=== PATIENT | female | born 1990 | race Caucasian/White ===

== ENCOUNTER 2016-11-02 20:21 | Emergency (ER) | payer OTHER ==
--- NOTE | 2016-11-02 20:47 | ED NURSING NOTES ---
Clinical Report - Nurses [facility] [address] [place] [address] 11/02/2016 20:21 Patient: BENTON COLON TRIAGE Triage time 20:32 Nov 02 2016. Acuity: LEVEL 5. Chief Complaint: JAW PAIN. 20:37 11/02/16. SEPSIS SCREEN: Sepsis Screen. Negative (no infection suspected/documented). --20:37 Monica Smith R.N. 20:37 11/02/16. BP: 124/82. HR: 78. RR: 18. O2 saturation: 100%. Temp: 98.6 F. Pain level now 05/12. --20:37 Monica Smith R.N. Weight: 52.1 kg stated. Height/Length: 63 inches Per Patient. BMI: 20.4. --20:32 Monica Smith R.N. Medications None. --20:37 Monica Smith R.N. Allergies Sulfa Antibiotics. --20:37 Monica Smith R.N. Medication/allergy information source: the patient. --20:37 Monica Smith R.N. History Arrived by private vehicle. Historian: patient. Onset. (had wisdom teeth extracted on thursday, states pain is worse now on bottom left. feels like there is lymph node swelling per patient). No fever, hoarseness or mouth sores. PAST MEDICAL HX: Last normal menstrual period now. SOCIAL HX: Light tobacco smoker (cigarette)- less than 1/2 a pack per day. No alcohol use or drug use. No infectious disease exposure. ABUSE ASSESSMENT: No report of abuse. SELF HARM ASSESSMENT: A self harm assessment was performed. The patient answered "no" to the question "Have you recently felt down, depressed, or hopeless?", "Have you noticed less interest or pleasure in doing things?", "Do you have thoughts of harming or killing yourself?", "Are you here because you tried to hurt yourself?", "Have you ever tried to hurt yourself before today?", "Have you recently had thoughts about harming or killing others?" and "Do you have any dangerous items in your possession?". FALL RISK ASSESSMENT: Fall risk assessment completed. No fall risk identified. NUTRITIONAL RISK ASSESSMENT: The nutritional risk assessment revealed no deficiencies. FUNCTIONAL ASSESSMENT: Functional assessment: no impairments noted. LEARNING NEEDS ASSESSMENT: The learning needs assessment revealed no barriers. SKIN INTEGRITY ASSESSMENT: Skin integrity risk assessment completed. No skin integrity risk identified. --20:37 Monica Smith R.N. PROBLEMS: Dental Abscess. Dental Caries. Dental Pain. --20:37 Monica Smith R.N. ADDITIONAL SURGERIES: [place] teeth extraction. --20:37 Monica Smith R.N. Interventions ID band on patient. --20:37 Monica Smith R.N. PHYSICAL ASSESSMENT 20:40 11/02/16. Ambulatory to room. GENERAL / NEURO / PSYCH: Alert. Oriented X 4. Appears in no acute distress. HEENT: Pupils equal, round and reactive to light. Pharynx within normal limits. Voice within normal limits. ( no swelling or redness noted in gums). Mucous membranes are pink. CVS: Capillary refill less than 2 seconds. SKIN: Skin is warm and dry. Normal skin turgor. --20:40 Monica Smith R.N. NURSING PROGRESS NOTES 20:37 11/02/16. The initial plan of care for this patient includes an assessment with efforts to address the presence of pain. This plan of care was discussed with the patient. Two patient identifiers checked. Call light placed in reach. Side rails up x 1. Bed placed in lowest position. Brakes of bed on. Patient ready for evaluation. --20:39 Monica Smith R.N. 20:47 11/02/2016 Percocet (Oxycodone-Acetaminophen) PO 5/325 mg Tablets 1 tab given. Allergies verified, confirmed 5 rights and sedative warning given to the patient. --20:47 Moncia Smith R.N. 20:47 11/02/2016 Clindamycin PO Capsules 300 mg given. Allergies verified and confirmed 5 rights. --20:47 Monica Smith R.N. DISPOSITION / DISCHARGE 20:49 11/02/16. Condition at departure: improved and stable. The goals identified in the patient's plan of care were met. No learning barriers present. Discharge instructions provided and reviewed with the patient. Reviewed medication(s) side effects, precautions, dosing and course information. Prescription(s) given to the patient. Reviewed referral to an oral surgeon for followup. Summary of care provided to patient via paper. Reviewed need to stop smoking. Patient verbalized understanding. Written instructions provided in [place]. The patient was discharged home and accompanied by glass technician. She left the Emergency Department ambulatory and via private vehicle. Snack Foods Mixer Operator driving. FALL RISK ASSESSMENT: Fall risk assessment completed. No fall risk identified. --20:49 Monica Smith R.N. 20:34 11/02/16. BP: 124/82. HR: 78. RR: 18. O2 saturation: 100%. Temp: 98.6 F. Pain level now 1010. --20:49 Monica Smith R.N. <<STRICKEN ENTRY-- Departure time: 20:49 Nov 02 2016. --20:49 Monica Smith R.N. --END STRIKE>> Correction --20:53 Monica Smith R.N. Departure time: 20:53 Nov 02 2016. --20:53 Monica Smith R.N. Locked/Released at 11/02/2016 20:53 by Monica Smith R.N.
--- NOTE | 2016-11-02 20:47 | ED CLINICAL REPORT ---
Clinical Report - Physicians/Mid Levels [facility] [address] [place] [address] 11/02/2016 20:21 Patient: BENTON COLON Time Seen: 20:35 Nov 02 2016. Arrived- By private vehicle. Historian- patient. HISTORY OF PRESENT ILLNESS Chief Complaint: DENTAL PAIN. This started 3 days and is still present. Pain described as mild. (4 days post quad wisdom tooth extraction now with facial pain/ swelling on left side, reports was taking vicodin previously and now worse, out of meds. No abx. Reports new facial swelling. Reports unable to chew on left isde). REVIEW OF SYSTEMS No fever, cough, diarrhea, abdominal pain or joint pain. All systems otherwise negative, except as recorded above. ADDITIONAL NOTES The nursing notes have been reviewed. PHYSICAL EXAM Vital Signs: 11/02/2016 20:37 BP: 124/82. HR: 78. RR: 18. O2 saturation: 100%. Temp: 98.6 F. Appearance: Alert. Patient in mild distress. Head: Normal external inspection. ENT: Dental tenderness (at gumline erythema of left molar, no palpable mass/ abscess). Nose normal. Pharynx normal. Lips normal. Uvula midline. No mouth ulcerations, tonsillar exudate, dental decay or trismus. Neck: Lymphadenopathy present (left anterior). CVS: Normal heart rate and rhythm. Heart sounds normal. Respiratory: No respiratory distress. Breath sounds normal. PROGRESS AND PROCEDURES Course of Care: no trismus, no palpable abscess/mass. Uvula midline. Tolerating own secretions well. No distress. No cough. Stable To f/u outpatient. 11/02/2016 20:37 BP: 124/82. HR: 78. RR: 18. O2 saturation: 100%. Temp: 98.6 F. Patient is stable. Patient/family counseled. Disposition: Discharged. CLINICAL IMPRESSION Moderate dental pain. INSTRUCTIONS Drink plenty of fluids. (external ice). Warnings: Further evaluation is necessary (in 2-3 days to ensure improvement). It is very important to follow up with a physician. SEDATIVE MEDICATION: You were given sedative medication during your visit. Do not drive or operate dangerous machinery. Prescription Medications: Cleocin 300 mg: take 1 capsule orally every 6 hours for 10 days. No refill. Substitution is permissible. Percocet 5 mg/325 mg: take 1 tablet orally every 6 hours as needed for pain. Dispense ten (10). No refill. Substitution is permissible. OTC Medications: Motrin IB 200 mg (available over the counter): take 4 orally every 8 hours for 5 days, as needed for pain or swelling. (with food) (Electronically signed by Isabel Barry P.A.-C 11/02/2016 21:01)
--- NOTE | 2016-11-02 20:47 | ED CLINICAL REPORT ---
Clinical Report - Physicians/Mid Levels [facility] [address] [place] [address] 11/02/2016 20:21 Patient: BENTON COLON Time Seen: 20:35 Nov 02 2016. Arrived- By private vehicle. Historian- patient. HISTORY OF PRESENT ILLNESS Chief Complaint: DENTAL PAIN. This started 3 days and is still present. Pain described as mild. (4 days post quad wisdom tooth extraction now with facial pain/ swelling on left side, reports was taking vicodin previously and now worse, out of meds. No abx. Reports new facial swelling. Reports unable to chew on left isde). REVIEW OF SYSTEMS No fever, cough, diarrhea, abdominal pain or joint pain. All systems otherwise negative, except as recorded above. ADDITIONAL NOTES The nursing notes have been reviewed. PHYSICAL EXAM Vital Signs: 11/02/2016 20:37 BP: 124/82. HR: 78. RR: 18. O2 saturation: 100%. Temp: 98.6 F. Appearance: Alert. Patient in mild distress. Head: Normal external inspection. ENT: Dental tenderness (at gumline erythema of left molar, no palpable mass/ abscess). Nose normal. Pharynx normal. Lips normal. Uvula midline. No mouth ulcerations, tonsillar exudate, dental decay or trismus. Neck: Lymphadenopathy present (left anterior). CVS: Normal heart rate and rhythm. Heart sounds normal. Respiratory: No respiratory distress. Breath sounds normal. PROGRESS AND PROCEDURES Course of Care: no trismus, no palpable abscess/mass. Uvula midline. Tolerating own secretions well. No distress. No cough. Stable To f/u outpatient. 11/02/2016 20:37 BP: 124/82. HR: 78. RR: 18. O2 saturation: 100%. Temp: 98.6 F. Patient is stable. Patient/family counseled. Disposition: Discharged. CLINICAL IMPRESSION Moderate dental pain. INSTRUCTIONS Drink plenty of fluids. (external ice). Warnings: Further evaluation is necessary (in 2-3 days to ensure improvement). It is very important to follow up with a physician. SEDATIVE MEDICATION: You were given sedative medication during your visit. Do not drive or operate dangerous machinery. Prescription Medications: Cleocin 300 mg: take 1 capsule orally every 6 hours for 10 days. No refill. Substitution is permissible. Percocet 5 mg/325 mg: take 1 tablet orally every 6 hours as needed for pain. Dispense ten (10). No refill. Substitution is permissible. OTC Medications: Motrin IB 200 mg (available over the counter): take 4 orally every 8 hours for 5 days, as needed for pain or swelling. (with food) (Electronically signed by Isabel Barry P.A.-C 11/02/2016 21:01)
--- NOTE | 2016-11-02 20:47 | ED ORDER SUMMARY ---
..... Patient: BENTON COLON OrderSheet [facility] VisitID: [id number] [address] [place] [address] 26y, F Registration Date/Time: 11/02/2016 ORDER SHEET Weight: 52.1 kg (stated) Allergies: Sulfa Antibiotics GENERAL ORDERS: MEDICATION ORDERS: Percocet PO 5/325 mg (HIGH ALERT MEDICATION, NOW) (20:43 11/02/2016 Belinda P.A.-C) (Ack 20:44 EInderbitzen R.N.) (20:47 EInderbitzen R.N.) Clindamycin PO 300 mg (NOW) (20:43 11/02/2016 Belinda Mckeon.A.-C) (Ack 20:44 EInderbitzen R.N.) (20:47 EInderbitzen R.N.) IV FLUIDS: ORDER SHEET NOTES: [Electronically signed by Monica Smith R.N. (20:53 11/02/2016)] [Electronically signed by Isabel Barry P.A.-C (21:01 11/02/2016)] [Electronically locked/signed by Monica Smith R.N. (20:53 11/02/2016)]
--- NOTE | 2016-11-02 20:47 | ED ORDER SUMMARY ---
..... Patient: BENTON COLON OrderSheet [facility] VisitID: [id number] [address] [place] [address] 26y, F Registration Date/Time: 11/02/2016 ORDER SHEET Weight: 52.1 kg (stated) Allergies: Sulfa Antibiotics GENERAL ORDERS: MEDICATION ORDERS: Percocet PO 5/325 mg (HIGH ALERT MEDICATION, NOW) (20:43 11/02/2016 Belinda P.A.-C) (Ack 20:44 EInderbitzen R.N.) (20:47 EInderbitzen R.N.) Clindamycin PO 300 mg (NOW) (20:43 11/02/2016 Belinda Mckeon.A.-C) (Ack 20:44 EInderbitzen R.N.) (20:47 EInderbitzen R.N.) IV FLUIDS: ORDER SHEET NOTES: [Electronically signed by Monica Smith R.N. (20:53 11/02/2016)] [Electronically signed by Isabel Barry P.A.-C (21:01 11/02/2016)] [Electronically locked/signed by Monica Smith R.N. (20:53 11/02/2016)]
--- NOTE | 2016-11-02 20:47 | ED NURSING NOTES ---
Clinical Report - Nurses [facility] [address] [place] [address] 11/02/2016 20:21 Patient: BENTON COLON TRIAGE Triage time 20:32 Nov 02 2016. Acuity: LEVEL 5. Chief Complaint: JAW PAIN. 20:37 11/02/16. SEPSIS SCREEN: Sepsis Screen. Negative (no infection suspected/documented). --20:37 Monica Smith R.N. 20:37 11/02/16. BP: 124/82. HR: 78. RR: 18. O2 saturation: 100%. Temp: 98.6 F. Pain level now 05/12. --20:37 Monica Smith R.N. Weight: 52.1 kg stated. Height/Length: 63 inches Per Patient. BMI: 20.4. --20:32 Monica Smith R.N. Medications None. --20:37 Monica Smith R.N. Allergies Sulfa Antibiotics. --20:37 Monica Smith R.N. Medication/allergy information source: the patient. --20:37 Monica Smith R.N. History Arrived by private vehicle. Historian: patient. Onset. (had wisdom teeth extracted on thursday, states pain is worse now on bottom left. feels like there is lymph node swelling per patient). No fever, hoarseness or mouth sores. PAST MEDICAL HX: Last normal menstrual period now. SOCIAL HX: Light tobacco smoker (cigarette)- less than 1/2 a pack per day. No alcohol use or drug use. No infectious disease exposure. ABUSE ASSESSMENT: No report of abuse. SELF HARM ASSESSMENT: A self harm assessment was performed. The patient answered "no" to the question "Have you recently felt down, depressed, or hopeless?", "Have you noticed less interest or pleasure in doing things?", "Do you have thoughts of harming or killing yourself?", "Are you here because you tried to hurt yourself?", "Have you ever tried to hurt yourself before today?", "Have you recently had thoughts about harming or killing others?" and "Do you have any dangerous items in your possession?". FALL RISK ASSESSMENT: Fall risk assessment completed. No fall risk identified. NUTRITIONAL RISK ASSESSMENT: The nutritional risk assessment revealed no deficiencies. FUNCTIONAL ASSESSMENT: Functional assessment: no impairments noted. LEARNING NEEDS ASSESSMENT: The learning needs assessment revealed no barriers. SKIN INTEGRITY ASSESSMENT: Skin integrity risk assessment completed. No skin integrity risk identified. --20:37 Monica Smith R.N. PROBLEMS: Dental Abscess. Dental Caries. Dental Pain. --20:37 Monica Smith R.N. ADDITIONAL SURGERIES: [place] teeth extraction. --20:37 Monica Smith R.N. Interventions ID band on patient. --20:37 Monica Smith R.N. PHYSICAL ASSESSMENT 20:40 11/02/16. Ambulatory to room. GENERAL / NEURO / PSYCH: Alert. Oriented X 4. Appears in no acute distress. HEENT: Pupils equal, round and reactive to light. Pharynx within normal limits. Voice within normal limits. ( no swelling or redness noted in gums). Mucous membranes are pink. CVS: Capillary refill less than 2 seconds. SKIN: Skin is warm and dry. Normal skin turgor. --20:40 Monica Smith R.N. NURSING PROGRESS NOTES 20:37 11/02/16. The initial plan of care for this patient includes an assessment with efforts to address the presence of pain. This plan of care was discussed with the patient. Two patient identifiers checked. Call light placed in reach. Side rails up x 1. Bed placed in lowest position. Brakes of bed on. Patient ready for evaluation. --20:39 Monica Smith R.N. 20:47 11/02/2016 Percocet (Oxycodone-Acetaminophen) PO 5/325 mg Tablets 1 tab given. Allergies verified, confirmed 5 rights and sedative warning given to the patient. --20:47 Monica Smith R.N. 20:47 11/02/2016 Clindamycin PO Capsules 300 mg given. Allergies verified and confirmed 5 rights. --20:47 Monica Smith R.N. DISPOSITION / DISCHARGE 20:49 11/02/16. Condition at departure: improved and stable. The goals identified in the patient's plan of care were met. No learning barriers present. Discharge instructions provided and reviewed with the patient. Reviewed medication(s) side effects, precautions, dosing and course information. Prescription(s) given to the patient. Reviewed referral to an oral surgeon for followup. Summary of care provided to patient via paper. Reviewed need to stop smoking. Patient verbalized understanding. Written instructions provided in [place]. The patient was discharged home and accompanied by commercial lines underwriter. She left the Emergency Department ambulatory and via private vehicle. Lock Tender Chief Operator driving. FALL RISK ASSESSMENT: Fall risk assessment completed. No fall risk identified. --20:49 Monica Smith R.N. 20:34 11/02/16. BP: 124/82. HR: 78. RR: 18. O2 saturation: 100%. Temp: 98.6 F. Pain level now 1010. --20:49 Monica Smith R.N. <<STRICKEN ENTRY-- Departure time: 20:49 Nov 02 2016. --20:49 Monica Smith R.N. --END STRIKE>> Correction --20:53 Monica Smith R.N. Departure time: 20:53 Nov 02 2016. --20:53 Monica Smith R.N. Locked/Released at 11/02/2016 20:53 by Monica Smith R.N.
--- NOTE | 2016-11-02 21:02 | ED MAR SUMMARY ---
..... Medication Administration Record [facility] [address] [place] [address] Patient: BENTON COLON Visit ID: [id number] 26y, F Weight: 52.1 kg Height/Length: 63 in BMI: 20.4 ALLERGIES: Sulfa Antibiotics Given 20:47 11/02/2016 Monica Smith R.N. Medication Administered: PERCOCET [PO] (OXYCODONE-ACETAMINOPHEN), Dose: 1 tab 5/325 mg Tablets PO. Medication Ordered: Percocet PO 5/325 mg (HIGH ALERT MEDICATION, NOW). Given 20:47 11/02/2016 Monica Smith R.N. Medication Administered: CLINDAMYCIN [PO], Dose: 300 mg Capsules PO. Medication Ordered: Clindamycin PO 300 mg (NOW).
--- NOTE | 2016-11-02 21:02 | ED MED RECONCILIATION SUMMARY ---
Patient: BENTON COLON Medication Reconciliation Report [facility] VisitID: [id number] [address] [place] [address] 26y, F Registration Date/Time: 11/02/2016 Weight: 52.1 kg Height/Length: 63 in. BMI: 20.4 ALLERGIES: Sulfa Antibiotics The patient's Home Medications are listed below: NONE. The source(s) of the original Home Medication information: patient The following Medications were given to the patient in the Emergency Department: Percocet [PO] PO 1 tab, administered: 11/02/2016 8:47:00 PM Clindamycin [PO] PO 300 mg, administered: 11/02/2016 8:47:00 PM The following Medications were prescribed to the patient: Motrin IB 200 mg (available over the counter): take 4 orally every 8 hours for 5 days, as needed for pain or swelling.(with food) -- Isabel Barry, P.A.-C Cleocin 300 mg: take 1 capsule orally every 6 hours for 10 days. No refill. Substitution is permissible. -- Isabel Barry, P.A.-C Percocet 5 mg/325 mg: take 1 tablet orally every 6 hours as needed for pain. Dispense ten (10). No refill. Substitution is permissible. -- Isabel Barry, P.A.-C
--- NOTE | 2016-11-02 21:02 | ED MED RECONCILIATION SUMMARY ---
Patient: BENTON COLON Medication Reconciliation Report [facility] VisitID: [id number] [address] [place] [address] 26y, F Registration Date/Time: 11/02/2016 Weight: 52.1 kg Height/Length: 63 in. BMI: 20.4 ALLERGIES: Sulfa Antibiotics The patient's Home Medications are listed below: NONE. The source(s) of the original Home Medication information: patient The following Medications were given to the patient in the Emergency Department: Percocet [PO] PO 1 tab, administered: 11/02/2016 8:47:00 PM Clindamycin [PO] PO 300 mg, administered: 11/02/2016 8:47:00 PM The following Medications were prescribed to the patient: Motrin IB 200 mg (available over the counter): take 4 orally every 8 hours for 5 days, as needed for pain or swelling.(with food) -- Isabel Barry, P.A.-C Cleocin 300 mg: take 1 capsule orally every 6 hours for 10 days. No refill. Substitution is permissible. -- Isabel Barry, P.A.-C Percocet 5 mg/325 mg: take 1 tablet orally every 6 hours as needed for pain. Dispense ten (10). No refill. Substitution is permissible. -- Isabel Barry, P.A.-C
--- NOTE | 2016-11-02 21:02 | ED MAR SUMMARY ---
..... Medication Administration Record [facility] [address] [place] [address] Patient: BENTON COLON Visit ID: [id number] 26y, F Weight: 52.1 kg Height/Length: 63 in BMI: 20.4 ALLERGIES: Sulfa Antibiotics Given 20:47 11/02/2016 Monica Smith R.N. Medication Administered: PERCOCET [PO] (OXYCODONE-ACETAMINOPHEN), Dose: 1 tab 5/325 mg Tablets PO. Medication Ordered: Percocet PO 5/325 mg (HIGH ALERT MEDICATION, NOW). Given 20:47 11/02/2016 Monica Smith R.N. Medication Administered: CLINDAMYCIN [PO], Dose: 300 mg Capsules PO. Medication Ordered: Clindamycin PO 300 mg (NOW).
--- NOTE | 2016-11-02 21:02 | ED DISCHARGE INSTRUCTIONS ---
Patient: BENTON COLON General Instructions [facility] VisitID: [id number] [place] [address] 26y, F Registration Date/Time: 11/02/2016 Moderate dental pain. INSTRUCTIONS Drink plenty of fluids. (external ice). Warnings: Further evaluation is necessary (in 2-3 days to ensure improvement). It is very important to follow up with a physician. SEDATIVE MEDICATION: You were given sedative medication during your visit. Do not drive or operate dangerous machinery. Prescription Medications: Cleocin 300 mg: take 1 capsule orally every 6 hours for 10 days. No refill. Substitution is permissible. Percocet 5 mg/325 mg: take 1 tablet orally every 6 hours as needed for pain. Dispense ten (10). No refill. Substitution is permissible. OTC Medications: Motrin IB 200 mg (available over the counter): take 4 orally every 8 hours for 5 days, as needed for pain or swelling. (with food) ADDITIONAL INFORMATION Dental Pain A crack or cavity in the tooth, which exposes the sensitive inner area of the tooth can cause tooth pain. An infection in the gum or the root of the tooth can cause pain and swelling. The pain is often made worse by drinking hot or cold fluids, or biting on hard foods. Pain may spread from the tooth to the ear or jaw on the same side. Home Care: Avoid hot and cold foods and liquids since your tooth may be sensitive to temperature changes. If your tooth is chipped or cracked, or if there is a large open cavity, apply OIL OF CLOVES (available pwet-jai-twnably in drug stores) directly to the tooth to reduce pain. Some pharmacies carry an [id number]-[id number] "toothache kit." This contains a paste, which can be applied over the exposed tooth to decrease sensitivity. A cold pack on your jaw over the sore area may help reduce pain. You may use acetaminophen (Tylenol) or ibuprofen (Motrin, Advil) to control pain, unless another medicine was prescribed. [ NOTE: If you have chronic liver or kidney disease or ever had a stomach ulcer or GI bleeding, talk with your doctor before using these medicines.] If you have signs of an infection, an antibiotic will be given. Take it as directed. Follow-Up as directed with a dentist. Your pain may go away with the treatment given. However, only a dentist can fully evaluate and treat the cause and prevent the pain from coming back again. TOOTHACHE IS A SIGN OF DISEASE IN YOUR TOOTH AND SHOULD BE EXAMINED AND TREATED BY A DENTIST. Get Prompt Medical Attention if any of the following occur: Your face becomes swollen or red Pain worsens or spreads to the neck Fever over 100.4 F (38.0 C) Unusual drowsiness; headache or stiff neck; weakness or fainting Pus drains from the tooth Difficulty swallowing or breathing Clindamycin Hydrochloride Oral capsule What is this medicine? CLINDAMYCIN (KLIN da SHELBY sin) is a lincosamide antibiotic. It is used to treat certain kinds of bacterial infections. It will not work for colds, flu, or other viral infections. How should I use this medicine? Take this medicine by mouth with a full glass of water. Follow the directions on the prescription label. You can take this medicine with food or on an empty stomach. If the medicine upsets your stomach, take it with food. Take your medicine at regular intervals. Do not take your medicine more often than directed. Take all of your medicine as directed even if you think your are better. Do not skip doses or stop your medicine early. Talk to your paster hat lining regarding the use of this medicine in children. Special care may be needed. What side effects may I notice from receiving this medicine? Side effects that you should report to your doctor or health social worker palliative care as soon as possible: allergic reactions like skin rash, itching or hives, swelling of the face, lips, or tongue dark urine pain on swallowing redness, blistering, peeling or loosening of the skin, including inside the mouth unusual bleeding or bruising unusually weak or tired yellowing of eyes or skin Side effects that usually do not require medical attention (report to your doctor or health social worker palliative care if they continue or are bothersome): diarrhea itching in the rectal or genital area joint pain nausea, vomiting stomach pain What may interact with this medicine? chloramphenicol erythromycin kaolin products What if I miss a dose? If you miss a dose, take it as soon as you can. If it is almost time for your next dose, take only that dose. Do not take double or extra doses. Where should I keep my medicine? Keep out of the reach of children. Store at room temperature between 20 and 25 degrees C (68 and 77 degrees F). Throw away any unused medicine after the expiration date. What should I tell my health care provider before I take this medicine? They need to know if you have any of these conditions: kidney disease liver disease stomach problems like colitis an unusual or allergic reaction to clindamycin, lincomycin, or other medicines, foods, dyes like tartrazine or preservatives or trying to get breast-feeding What should I watch for while using this medicine? Tell your doctor or healthcare professional if your symptoms do not start to get better or if they get worse. Do not treat diarrhea with over the counter products. Contact your doctor if you have diarrhea that lasts more than 2 days or if it is severe and watery. Oxycodone Hydrochloride, Acetaminophen Oral tablet What is this medicine? ACETAMINOPHEN; OXYCODONE (a set a ESSIE fen; ox i KOE done) is a pain reliever. It is used to treat mild to moderate pain. How should I use this medicine? Take this medicine by mouth with a full glass of water. Follow the directions on the prescription label. Take your medicine at regular intervals. Do not take your medicine more often than directed. Talk to your paster hat lining regarding the use of this medicine in children. Special care may be needed. Patients over 65 years old may have a stronger reaction and need a smaller dose. What side effects may I notice from receiving this medicine? Side effects that you should report to your doctor or health social worker palliative care as soon as possible: allergic reactions like skin rash, itching or hives, swelling of the face, lips, or tongue breathing difficulties, wheezing confusion light headedness or fainting spells severe stomach pain yellowing of the skin or the whites of the eyes Side effects that usually do not require medical attention (report to your doctor or health social worker palliative care if they continue or are bothersome): dizziness drowsiness nausea vomiting What may interact with this medicine? alcohol antihistamines barbiturates like amobarbital, butalbital, butabarbital, methohexital, pentobarbital, phenobarbital, thiopental, and secobarbital benztropine drugs for bladder problems like solifenacin, trospium, oxybutynin, tolterodine, hyoscyamine, and methscopolamine drugs for breathing problems like ipratropium and tiotropium drugs for certain stomach or intestine problems like propantheline, homatropine methylbromide, glycopyrrolate, atropine, belladonna, and dicyclomine general anesthetics like etomidate, ketamine, nitrous oxide, propofol, desflurane, enflurane, halothane, isoflurane, and sevoflurane medicines for depression, anxiety, or psychotic disturbances medicines for sleep muscle relaxants naltrexone narcotic medicines (opiates) for pain phenothiazines like perphenazine, thioridazine, chlorpromazine, mesoridazine, fluphenazine, prochlorperazine, promazine, and trifluoperazine scopolamine tramadol trihexyphenidyl What if I miss a dose? If you miss a dose, take it as soon as you can. If it is almost time for your next dose, take only that dose. Do not take double or extra doses. Where should I keep my medicine? Keep out of the reach of children. This medicine can be abused. Keep your medicine in a safe place to protect it from theft. Do not share this medicine with anyone. Selling or giving away this medicine is dangerous and against the law. Store at room temperature between 20 and 25 degrees C (68 and 77 degrees F). Keep container tightly closed. Protect from light. This medicine may cause accidental overdose and if it is taken by other adults, children, or pets. Flush any unused medicine down the toilet to reduce the chance of harm. Do not use the medicine after the expiration date. What should I tell my health care provider before I take this medicine? They need to know if you have any of these conditions: brain tumor Crohn's disease, inflammatory bowel disease, or ulcerative colitis drink more than 3 alcohol containing drinks per day drug abuse or addiction head injury heart or circulation problems kidney disease or problems going to the bathroom liver disease lung disease, asthma, or breathing problems an unusual or allergic reaction to acetaminophen, oxycodone, other opioid analgesics, other medicines, foods, dyes, or preservatives or trying to get breast-feeding What should I watch for while using this medicine? Tell your doctor or health social worker palliative care if your pain does not go away, if it gets worse, or if you have new or a different type of pain. You may develop tolerance to the medicine. Tolerance means that you will need a higher dose of the medication for pain relief. Tolerance is normal and is expected if you take this medicine for a long time. Do not suddenly stop taking your medicine because you may develop a severe reaction. Your body becomes used to the medicine. This does NOT mean you are addicted. Addiction is a behavior related to getting and using a drug for a non-medical reason. If you have pain, you have a medical reason to take pain medicine. Your doctor will tell you how much medicine to take. If your doctor wants you to stop the medicine, the dose will be slowly lowered over time to avoid any side effects. You may get drowsy or dizzy. Do not drive, use machinery, or do anything that needs mental alertness until you know how this medicine affects you. Do not stand or sit up quickly, especially if you are an older patient. This reduces the risk of dizzy or fainting spells. Alcohol may interfere with the effect of this medicine. Avoid alcoholic drinks. There are different types of narcotic medicines (opiates) for pain. If you take more than one type at the same time, you may have more side effects. Give your health care provider a list of all medicines you use. Your doctor will tell you how much medicine to take. Do not take more medicine than directed. Call emergency for help if you have problems breathing. The medicine will cause constipation. Try to have a bowel movement at least every 2 to 3 days. If you do not have a bowel movement for 3 days, call your doctor or health social worker palliative care. Do not take Tylenol (acetaminophen) or medicines that have acetaminophen with this medicine. Too much acetaminophen can be very dangerous. Many nonprescription medicines contain acetaminophen. Always read the labels carefully to avoid taking more acetaminophen. Ibuprofen Oral tablet What is this medicine? IBUPROFEN (eye BYOO proe fen) is a non-steroidal anti-inflammatory drug (NSAID). It is used for dental pain, fever, headaches or migraines, osteoarthritis, rheumatoid arthritis, or painful monthly periods. It can also relieve minor aches and pains caused by a cold, flu, or sore throat. How should I use this medicine? Take this medicine by mouth with a glass of water. Follow the directions on the prescription label. Take this medicine with food if your stomach gets upset. Try to not lie down for at least 10 minutes after you take the medicine. Take your medicine at regular intervals. Do not take your medicine more often than directed. A special MedGuide will be given to you by the pharmacist with each prescription and refill. Be sure to read this information carefully each time. Talk to your paster hat lining regarding the use of this medicine in children. Special care may be needed. What side effects may I notice from receiving this medicine? Side effects that you should report to your doctor or health social worker palliative care as soon as possible: allergic reactions like skin rash, itching or hives, swelling of the face, lips, or tongue black or bloody stools, blood in the urine or in vomit breathing problems changes in vision chest pain general ill feeling or flu-like symptoms nausea or vomiting redness, blistering, peeling or loosening of the skin, including inside the mouth slurred speech or weakness on one side of the body stomach pain unexplained weight gain or swelling unusually weak or tired yellowing of eyes or skin Side effects that usually do not require medical attention (report to your doctor or health social worker palliative care if they continue or are bothersome): constipation or diarrhea dizziness gas or heartburn stomach upset What may interact with this medicine? Do not take this medicine with any of the following medications: cidofovir ketorolac methotrexate pemetrexed This medicine may also interact with the following medications: alcohol aspirin diuretics lithium other drugs for inflammation like prednisone warfarin What if I miss a dose? If you miss a dose, take it as soon as you can. If it is almost time for your next dose, take only that dose. Do not take double or extra doses. Where should I keep my medicine? Keep out of the reach of children. Store at room temperature between 15 and 30 degrees C (59 and 86 degrees F). Keep container tightly closed. Throw away any unused medicine after the expiration date. What should I tell my health care provider before I take this medicine? They need to know if you have any of these conditions: asthma cigarette smoker drink more than 3 alcohol containing drinks a day heart disease or circulation problems such as heart failure or leg edema (fluid retention) high blood pressure kidney disease liver disease stomach bleeding or ulcers an unusual or allergic reaction to ibuprofen, aspirin, other NSAIDS, other medicines, foods, dyes, or preservatives or trying to get breast-feeding What should I watch for while using this medicine? Tell your doctor or healthcare professional if your symptoms do not start to get better or if they get worse. This medicine does not prevent heart attack or stroke. In fact, this medicine may increase the chance of a heart attack or stroke. The chance may increase with longer use of this medicine and in people who have heart disease. If you take aspirin to prevent heart attack or stroke, talk with your doctor or health social worker palliative care. Do not take other medicines that contain aspirin, ibuprofen, or naproxen with this medicine. Side effects such as stomach upset, nausea, or ulcers may be more likely to occur. Many medicines available without a prescription should not be taken with this medicine. This medicine can cause ulcers and bleeding in the stomach and intestines at any time during treatment. Ulcers and bleeding can happen without warning symptoms and can cause . To reduce your risk, do not smoke cigarettes or drink alcohol while you are taking this medicine. You may get drowsy or dizzy. Do not drive, use machinery, or do anything that needs mental alertness until you know how this medicine affects you. Do not stand or sit up quickly, especially if you are an older patient. This reduces the risk of dizzy or fainting spells. This medicine can cause you to bleed more easily. Try to avoid damage to your teeth and gums when you brush or floss your teeth. You have been given the following additional information: Dental Pain Clindamycin Hydrochloride Oral capsule Oxycodone Hydrochloride, Acetaminophen Oral tablet Ibuprofen Oral tablet (Electronically signed by Isabel Barry P.A.-C 11/02/2016 21:01)
== END 2016-11-02 20:53 | disposition home or self-care (01) ==
LOC: ED SRH 20:21
DX: K08.89 Other specified disorders of teeth and supporting structures (principal); Z98.818 Other dental procedure status